=== PATIENT | female | born 1940 | race Caucasian/White ===

== ENCOUNTER → 2017-02-12 | Outpatient (REF) | payer MEDICARE, BC ==
[2017-02-12 17:32] LABS: PERCENT SATURATION 22.2 % (13.2-37.4)
== END ==
LOC: M LAB REF 16:32
PROVIDERS: ATTEND Internal Medicine
DX: D64.9 Anemia, unspecified (principal)

== ENCOUNTER 2018-10-04 13:35 | Emergency (ER) | payer MEDICARE, BC ==
[~2018-10-04] VITALS: Ht 154.9 cm; Wt 94.1 kg
[2018-10-04] MEDS ORDERED: AMLO5TAB6 (13:48)
[2018-10-04] MEDS ORDERED: IRBE150T12 (13:48)
[2018-10-04] MEDS ORDERED: THYR60TA (13:48)
[2018-10-04] MEDS ORDERED: PROG100C (13:48)
[2018-10-04] MEDS ORDERED: ROSU10TA5 (13:48)
[2018-10-04] MEDS ORDERED: DEXI60CA2 (13:48)
[2018-10-04] MEDS ORDERED: MONT10TA2 (13:48)
[2018-10-04] MEDS ORDERED: CETI10TA (13:48)
[2018-10-04 15:45] VITALS: BP 117/67
[2018-10-04] MEDS ORDERED: PROP20TA72 PO (15:45)
[2018-10-04] MEDS ORDERED: LEVO50TA5 PO (16:01)
[2018-10-04] MEDS ORDERED: PROG100C PO (16:02)
[2018-10-04] MEDS ORDERED: CRES10TA32 PO (16:03)
[2018-10-04] MEDS ORDERED: DEXI60CA2 PO (16:04)
[2018-10-04] MEDS ORDERED: CETI10CH PO (16:04)
[2018-10-04] MEDS ORDERED: MONT10TA2 PO (16:05)
[2018-10-04] MEDS ORDERED: IRBE150T12 PO (16:06)
[2018-10-04 16:07] LABS: HEMATOCRIT 39.6 % (36.0-47.0); HEMOGLOBIN 13.6 g/dl (12.0-15.5); MEAN CORPUSCULAR HGB CONC 34.3 g/dl (32.0-36.5); MEAN CORPUSCULAR VOLUME 90.2 fl (80.0-96.0); PLATELET COUNT, AUTOMATED 203 10^3/uL (150-450); RED BLOOD COUNT 4.39 10^6/uL (4.00-5.40); WHITE BLOOD COUNT 5.9 10^3/uL (4.0-10.0)
[2018-10-04] MEDS ORDERED: AMLO5TAB6 PO (16:07)
[2018-10-04] MEDS ORDERED: FISH7.5C PO (16:07)
[2018-10-04 16:22] LABS: BLOOD UREA NITROGEN 10 MG/DL (7-18); CALCIUM LEVEL 8.6 MG/DL (8.8-10.2); CARBON DIOXIDE LEVEL 30 MEQ/L (21-32); CHLORIDE LEVEL 105 MEQ/L (98-107); CPK CREATINE PHOSPHOKINASE 52 U/L (26-192); GLOMERULAR FILTRATION RATE > 60.0 (>39); GLUCOSE, FASTING 106 MG/DL (70-100); POTASSIUM SERUM 3.4 MEQ/L (3.5-5.1); SODIUM LEVEL 142 MEQ/L (136-145); TROPONIN I < 0.02 NG/ML (< 0.10)
--- NOTE | 2018-10-04 17:15 | REP ---
CT Head without contrast HISTORY: Dizziness COMPARISON: None Areas of decreased attenuation are present in the periventricular white matter. This represents small-vessel ischemic disease. There is no intraparenchymal hemorrhage, acute infarct, mass or midline shift. The ventricular system and cortical sulci as well as subarachnoid space in the posterior fossa are dilated consistent with minimal volume loss. There is no extra cerebral collection. There is no fracture. The visualized sinuses are clear. IMPRESSION: 1. Small vessel ischemic disease. 2. Minimal volume loss. Electronically Signed by Sha Webb MD 10/04/2018 05:07 P
--- NOTE | 2018-10-04 17:17 | ECGEPIP ---
Stationary ECG Study [facility] - ED Test Date: 2018-10-04 Pat Name: NIDA WEN Department: Room: - Gender: F Maintenance Worker: hollis : 1940 Requested By: Layton Mlain Order Number: [id number] Reading MD: Ana Pierson Measurements Intervals [place] Rate: 77 P: 17 AK: 167 QRS: -41 QRSD: 97 T: 41 QT: 395 QTc: 448 Interpretive Statements SINUS RHYTHM MARKED LEFT AXIS DEVIATION NSTTW ABNORMALITY MODERATE VOLTAGE CRITERIA FOR LVH, CONSIDER NORMAL VARIANT BASELINE ARTIFACT LIMITS INTERPRETATION Electronically Signed On 10-04-2018 17:17:01 EST by Ana Pierson
[2018-10-04] MEDS ORDERED: DEXTROSE 50% 50 ML SYRINGE IV STA (17:35)
== END 2018-10-04 18:09 | disposition home or self-care (01) ==
LOC: M ED 13:35
DX: I10 Essential (primary) hypertension (principal); E78.5 Hyperlipidemia, unspecified; K21.9 Gastro-esophageal reflux disease without esophagitis; Z79.899 Other long term (current) drug therapy; Z88.2 Allergy status to sulfonamides; Z88.8 Allergy status to other drugs, medicaments and biological substances

== ENCOUNTER 2019-03-11 10:03 | Emergency (ER) | payer MEDICARE, BC ==
[~2019-03-11] VITALS: Ht 154.9 cm; Wt 96.4 kg
[~2019-03-11 10:03] MED LIST: AMLO5TAB6; AMLO5TAB6 PO; CETI10CH PO; CETI10TA; CRES10TA PO; DEXI60CA2; DEXI60CA2 PO; FISH7.5C PO; IRBE150T12; IRBE150T12 PO; LEVO50TA5 PO; MONT10TA2; MONT10TA2 PO; PROG100C; PROG100C PO; PROP20TA72 PO; ROSU10TA5; THYR60TA
[2019-03-11] MEDS ORDERED: NYQUIL (10:12)
[2019-03-11] MEDS ORDERED: AMOX875T (10:12)
[2019-03-11] MEDS ORDERED: DAYQUIL (10:12)
[2019-03-11] MEDS ORDERED: AZEL1SPR3 (10:12)
[2019-03-11] MEDS ORDERED: LEVALBUTEROL 1.25 MG/0.5 ML CONCENTRATE NEB INH PRN (10:45)
--- NOTE | 2019-03-11 11:03 | REP ---
Chest two views HISTORY: Cough Comparison: 04/07/2016 The lungs are clear. The heart is normal in size. The pulmonary vasculature is normal in appearance. The bony structure is intact. IMPRESSION: No acute disease. Electronically Signed by Sha Webb MD 03/11/2019 10:54 A
[2019-03-11] MEDS ORDERED: DOXY100C PO (11:17)
[2019-03-11] MEDS ORDERED: MUCI600T31 PO (11:17)
[2019-03-11] MEDS ORDERED: PRED20TA PO (11:26)
[2019-03-11] MEDS ORDERED: DOXYCYCLINE HYCLATE 100 MG TAB PO ONE (11:30)
[2019-03-11 11:33] VITALS: BP 113/56
== END 2019-03-11 11:35 | disposition home or self-care (01) ==
LOC: M ED 10:03
DX: J01.90 Acute sinusitis, unspecified (principal); J20.9 Acute bronchitis, unspecified; I10 Essential (primary) hypertension; E78.00 Pure hypercholesterolemia, unspecified; K21.9 Gastro-esophageal reflux disease without esophagitis; Z79.899 Other long term (current) drug therapy; Z79.890 Hormone replacement therapy; Z88.2 Allergy status to sulfonamides; Z88.5 Allergy status to narcotic agent; Z88.8 Allergy status to other drugs, medicaments and biological substances

== ENCOUNTER → 2020-03-11 | Outpatient (CLI) | payer MEDICARE, BC ==
[~2020-03-11] MED LIST changes: +AMOX875T; +AZEL1SPR3; +DAYQUIL; +DOXY100C PO; -IRBE150T12; -IRBE150T12 PO; +IRBE150T7; +IRBE150T7 PO; -MONT10TA2; -MONT10TA2 PO; +MONT10TA4; +MONT10TA4 PO; +MUCI600T31 PO; +NYQUIL; +PRED20TA PO; -PROG100C; -PROG100C PO; +PROG1CAP8; +PROG1CAP8 PO; -ROSU10TA5; +ROSU10TA6
--- NOTE | 2020-03-11 13:13 | REP ---
Left lower extremity Duplex Doppler venous ultrasound: Real time compression and duplex Doppler interrogation of the left lower extremity deep venous system is performed. The left common femoral, superficial femoral and popliteal veins are fully compressible with transducer pressure and demonstrate normal spontaneous and phasic flow, without evidence of deep venous thrombosis. Impression: No evidence of deep venous thrombosis of the left lower extremity femoral popliteal venous system. Electronically Signed by Jaime Gutierrez MD 03/11/2020 01:04 P
== END ==
LOC: M RAD 12:05
PROVIDERS: ATTEND Orthopaedic Surgery
DX: M79.662 Pain in left lower leg (principal)

== ENCOUNTER 2020-12-06 19:24 | Emergency (ER) | payer MEDICARE, BC ==
[~2020-12-06] VITALS: Ht 157.5 cm; Wt 93.2 kg
[~2020-12-06 19:24] MED LIST changes: +AMLO1TAB24; +AMLO1TAB24 PO; -AMLO5TAB6; -AMLO5TAB6 PO; +MONT10TA10; +MONT10TA10 PO; -MONT10TA4; -MONT10TA4 PO
[2020-12-06] MEDS ORDERED: LIDOCAINE 2% W/EPINEPHRINE 20ML VIAL **PRES FREE INJ ONE (19:40)
--- NOTE | 2020-12-06 20:36 | REPVR ---
PROCEDURE INFORMATION: Exam: CT Maxillofacial Without Contrast Exam date and time: 12/06/2020 7:49 PM Age: 80 years old Clinical indication: Injury or trauma; Fall; Blunt trauma (contusions or hematomas); Forehead; Additional info: Trauma; Head/forehead injury; Neck pain S/P fall TECHNIQUE: Imaging protocol: Computed tomography images of the face without contrast. Radiation optimization: All CT scans at this facility use at least one of these dose optimization techniques: automated exposure control; mA and/or kV adjustment per patient size (includes targeted exams where dose is matched to clinical indication); or iterative reconstruction. COMPARISON: No relevant prior studies available. FINDINGS: Orbital cavity: Orbits are normal. Globes are unremarkable. Bones/joints: No acute fracture. Paranasal sinuses: Normal. No air-fluid levels. Soft tissues: Right frontal scalp hematoma and laceration. Right periorbital edema IMPRESSION: No acute fracture. Electronically signed by: Seamus Gray On 12/06/2020 20:37:18 PM
--- NOTE | 2020-12-06 20:39 | REPVR ---
PROCEDURE INFORMATION: Exam: CT Head Without Contrast Exam date and time: 12/06/2020 7:49 PM Age: 80 years old Clinical indication: Injury or trauma; Fall; Blunt trauma (contusions or hematomas); Additional info: Trauma; Head/forehead injury; Neck pain S/P fall TECHNIQUE: Imaging protocol: Computed tomography of the head without contrast. Radiation optimization: All CT scans at this facility use at least one of these dose optimization techniques: automated exposure control; mA and/or kV adjustment per patient size (includes targeted exams where dose is matched to clinical indication); or iterative reconstruction. COMPARISON: CT Head without contrast 10/04/2018 4:46 PM FINDINGS: Brain: There are moderate periventricular and subcortical lucencies consistent with chronic microvascular ischemic changes. The faust-white differentiation is maintained. No hemorrhage. No edema. Cerebral ventricles: No ventriculomegaly. Bones/joints: Unremarkable. No acute fracture. Paranasal sinuses: Visualized sinuses are unremarkable. No fluid levels. Mastoid air cells: Visualized mastoid air cells are well aerated. Soft tissues: Frontal scalp hematoma and laceration. IMPRESSION: No acute intracranial abnormality. Chronic microvascular ischemic changes. Electronically signed by: Seamsu Gray On 12/06/2020 20:40:10 PM
--- NOTE | 2020-12-06 20:42 | REPVR ---
PROCEDURE INFORMATION: Exam: CT Cervical Spine Without Contrast Exam date and time: 12/06/2020 7:49 PM Age: 80 years old Clinical indication: Pain and injury or trauma; Fall; Blunt trauma; Neck pain; Additional info: Trauma; Head/forehead injury; Neck pain S/P fall TECHNIQUE: Imaging protocol: Computed tomography images of the cervical spine without contrast. Radiation optimization: All CT scans at this facility use at least one of these dose optimization techniques: automated exposure control; mA and/or kV adjustment per patient size (includes targeted exams where dose is matched to clinical indication); or iterative reconstruction. COMPARISON: No relevant prior studies available. FINDINGS: Bones/joints: Grade 1 anterolisthesis of C3 over C4. Discs/Spinal canal/Neural foramina: Multilevel degenerative disc disease. There is multilevel uncovertebral and facet hypertrophy with neural foramina narrowing. Lungs: Lung apices are normal. Soft tissues: Unremarkable. IMPRESSION: No acute abnormality. Electronically signed by: Seamus Gray On 12/06/2020 20:42:52 PM
[2020-12-06] MEDS ORDERED: IBUPROFEN 600MG TAB PO ONE (22:05)
--- NOTE | 2020-12-06 22:10 | REPVR ---
PROCEDURE INFORMATION: Exam: XR Left Wrist Exam date and time: 12/06/2020 9:57 PM Age: 80 years old Clinical indication: Pain; Wrist; Left; Additional info: Left wrist pain S/P fall TECHNIQUE: Imaging protocol: XR Left wrist. Views: 3 or more views. COMPARISON: No relevant prior studies available. FINDINGS: Bones/joints: Normal. Diffuse demineralization of bones. Soft tissues: Normal. IMPRESSION: No acute findings. Electronically signed by: Seamus Gray On 12/06/2020 22:10:45 PM
[2020-12-06 22:31] VITALS: BP 168/90
== END 2020-12-06 22:54 | disposition home or self-care (01) ==
LOC: M ED 19:24
DX: S01.01XA Laceration without foreign body of scalp, initial encounter (principal); S00.83XA Contusion of other part of head, initial encounter; S63.502A Unspecified sprain of left wrist, initial encounter; W01.190A Fall on same level from slipping, tripping and stumbling with subsequent striking against furniture, initial encounter; Y92.018 Other place in single-family (private) house as the place of occurrence of the external cause; I10 Essential (primary) hypertension; K21.9 Gastro-esophageal reflux disease without esophagitis; E78.5 Hyperlipidemia, unspecified; Z88.1 Allergy status to other antibiotic agents; Z88.2 Allergy status to sulfonamides; Z88.5 Allergy status to narcotic agent; Z88.8 Allergy status to other drugs, medicaments and biological substances

== ENCOUNTER 2020-12-13 16:24 | Emergency (ER) | payer MEDICARE, BC ==
[~2020-12-13] VITALS: Ht 157.5 cm; Wt 98.3 kg
[2020-12-13 16:25] VITALS: BP 159/94
== END 2020-12-13 17:35 | disposition home or self-care (01) ==
LOC: M ED 16:24
DX: Z48.02 Encounter for removal of sutures (principal); S01.01XD Laceration without foreign body of scalp, subsequent encounter; W01.0XXD Fall on same level from slipping, tripping and stumbling without subsequent striking against object, subsequent encounter; Y92.9 Unspecified place or not applicable; Y93.9 Activity, unspecified; Y99.9 Unspecified external cause status; E78.5 Hyperlipidemia, unspecified; I10 Essential (primary) hypertension; K21.9 Gastro-esophageal reflux disease without esophagitis; Z88.1 Allergy status to other antibiotic agents; Z88.2 Allergy status to sulfonamides; Z88.6 Allergy status to analgesic agent

== ENCOUNTER 2020-12-18 10:31 | Emergency (ER) | payer MEDICARE, BC ==
[~2020-12-18] VITALS: Ht 157.5 cm; Wt 97.6 kg
[2020-12-18 10:42] VITALS: BP 134/92
== END 2020-12-18 11:26 | disposition home or self-care (01) ==
LOC: M ED 10:31
DX: Z48.02 Encounter for removal of sutures (principal); K21.9 Gastro-esophageal reflux disease without esophagitis; E03.9 Hypothyroidism, unspecified; Z88.1 Allergy status to other antibiotic agents; Z88.2 Allergy status to sulfonamides; Z88.8 Allergy status to other drugs, medicaments and biological substances; Z88.6 Allergy status to analgesic agent

== ENCOUNTER → 2023-01-30 | Outpatient (CLI) | payer MEDICARE, BC ==
[~2023-01-30] MED LIST changes: -DOXY100C PO; +DOXY100C3 PO; +FISH10005 PO; -FISH7.5C PO; -MONT10TA10; -MONT10TA10 PO; +MONT10TA97; +MONT10TA97 PO
== END ==
LOC: M WUC 10:23
PROVIDERS: ATTEND Nurse Practitioner Adult Health
DX: M79.672 Pain in left foot (principal)

== ENCOUNTER → 2023-04-18 | Outpatient (CLI) | payer MEDICARE | LOC: M RAD 16:54 | PROVIDERS: ATTEND Student in an Organized Health Care Education/Training Program | DX: R22.42 Localized swelling, mass and lump, left lower limb (principal) ==

== ENCOUNTER → 2023-06-18 | Outpatient (CLI) | payer MEDICARE | LOC: M RAD 11:17 | PROVIDERS: ATTEND Student in an Organized Health Care Education/Training Program | DX: M79.662 Pain in left lower leg (principal) ==

== ENCOUNTER → 2024-07-09 | Outpatient (CLI) | payer MEDICARE ==
[~2024-07-09] MED LIST changes: +IRBE150T27; +IRBE150T27 PO; -IRBE150T7; -IRBE150T7 PO; -ROSU10TA6; +ROSU10TA61
== END ==
LOC: M RAD 13:26
PROVIDERS: ATTEND Nurse Practitioner Adult Health
DX: R32 Unspecified urinary incontinence (principal)

== ENCOUNTER → 2024-10-06 | Outpatient (REF) | payer MEDICARE | LOC: M LAB REF 13:26 | PROVIDERS: ATTEND Nurse Practitioner Adult Health | DX: R19.7 Diarrhea, unspecified (principal) ==

== ENCOUNTER → 2025-01-23 | Outpatient (REF) | payer MEDICARE ==
[2025-01-23 14:02] LABS: AMORPHOUS SEDIMENT SMALL (NEGATIVE); APPEARANCE, URINE TURBID (CLEAR); BACTERIA, URINE AUTO 1+ (NEGATIVE); BILIRUBIN, URINE AUTO NEGATIVE (NEGATIVE); BLOOD, URINE BLOOD NEGATIVE (NEGATIVE); COLOR, URINE AMBER (YELLOW); GLUCOSE, URINE (UA) AUTO NEGATIVE (NEGATIVE); KETONE, URINE AUTO NEGATIVE (NEGATIVE); LEUKOCYTE ESTERASE, URINE AUTO 2+ (NEGATIVE); MUCUS, URINE SMALL (NEGATIVE); NITRITE, URINE AUTO NEGATIVE (NEGATIVE); PROTEIN, URINE AUTO NEGATIVE (NEGATIVE); RBC, URINE AUTO 1 /HPF (0-3); SQUAMOUS EPITHELIAL CELL UR AU 30 /HPF (0-6); UROBILINOGEN, URINE AUTO 0.2 mg/dL (0.0-2.0); WBC, URINE AUTO 38 /HPF (0-3)
== END ==
LOC: M SMT 12:56
PROVIDERS: ATTEND Nurse Practitioner Family
DX: N39.41 Urge incontinence (principal)